=== PATIENT | male | born 1965 | race Caucasian/White ===

== ENCOUNTER 2018-11-01 08:58 | Emergency (ER) | payer BC ==
[~2018-11-01 08:58] MED LIST: ALBU8.5H12 IH; ALP5 PO; CLI150 PO; CYCL10TA29 PO; DIA5 PO; DOXY-179 PO; GAB300 PO; GUAI-652 PO; GUAI1CAP3; IBUP-56 PO; LOR5/325 PO; MECL-205 PO; METH4TAB66 PO; NAP250 PO; NO ROUTINE MEDS; OXYC-865 PO; PER PO; PRED20TA6 PO; ROBC PO; TRA50 PO
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
[2018-11-01 09:30] VITALS: BP 120/66
--- NOTE | 2018-11-01 09:45 | RADIOLOGY IMAGING REPORT ---
FACILITY: [facility] - [place] PATIENT NAME: Juan M Alvarado : 1965 MR: [id number] V: [id number] EXAM DATE: ORDERING PHYSICIAN: JAYNE LONG TECHNOLOGIST: Location: [facility] - [place] Patient: Juan M Alvarado : 1965 Visit/Account:[id number] Date of Sevice: 11/01/2018 EXAMINATION: Left shoulder radiographs 3 views HISTORY: Pain with abduction. No known injury. COMPARISON: None. FINDINGS: Scapular Y, AP internal rotation and AP external rotation views of the left shoulder are ob tained. Bones: No acute fracture or dislocation. 7 mm smooth bony exostosis from the proximal medial krish l shaft. Joint spaces: Moderate to severe joint space narrowing, sclerosis and bony spurring of the glenohume ral joint, with a prominent bone spur from the humeral head. Hardware: None. Alignment: Normal. Soft tissues/visualized lungs: Negative. IMPRESSION: 1. 7 mm bony exostosis from the proximal medial left humerus is likely a benign osteoma or osteochon droma. 2. Moderate to severe degenerative joint disease of the left glenohumeral joint could be due to oste oarthritis. Report Dictated By: Jenny Marino MD at 11/01/2018 9:39 AM Report E-Signed By: Jenny Marino MD at 11/01/2018 9:41 AM WSN:[email or web address]
[2018-11-01] MEDS ORDERED: NAPR375T44 PO (09:53)
[2018-11-01] MEDS ORDERED: LOR5/325 PO (09:53)
== END 2018-11-01 09:54 | disposition home or self-care (01) ==
LOC: ER 09:25
DX: M75.42 Impingement syndrome of left shoulder (principal)
CPT/HCPCS: 73030; 99283; A4565

== ENCOUNTER 2018-11-25 00:53 | Day surgery (SDC) | payer BC ==
[~2018-11-25] VITALS: Ht 180.3 cm; Wt 110.2 kg
[~2018-11-25 00:53] MED LIST changes: +NAPR375T44 PO; +TRAM-420 PO
[2018-11-25] MEDS ORDERED: PROPOFOL EMUL(*) 10MG/ML 20 ML 20 ML ONE ×2 (07:17→10:04)
[2018-11-25 08:13] VITALS: BP 142/85
[2018-11-25] MEDS ORDERED: LIDOCAINE/SOD BICARB 8.4% SYR ID ONE (08:30)
[2018-11-25] MEDS ORDERED: NORMOSOL R SOLN(*) 1000 ML BAG 1,000 ML IV PRN (08:30)
[2018-11-25 10:15] VITALS: BP 143/84
[2018-11-25 10:30] VITALS: BP 140/102
[2018-11-25 10:51] VITALS: BP 155/87
[2018-11-25 10:52] VITALS: BP 155/86
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
== END 2018-11-25 11:10 | disposition home or self-care (01) ==
LOC: OR 00:53
PROVIDERS: ATTEND Family Medicine
DX: Z12.11 Encounter for screening for malignant neoplasm of colon (principal); K57.30 Diverticulosis of large intestine without perforation or abscess without bleeding
CPT/HCPCS: 00812; 45378; J2704